=== PATIENT | female | born 1980 | race Caucasian/White ===

== ENCOUNTER → 2017-02-17 | Outpatient (CLI) | payer OTHER ==
--- NOTE | 2017-02-17 12:43 | XR ---
EXAMINATION TYPE: XR hand complete bilateral DATE OF EXAM: 02/17/2017 12:39 PM COMPARISON: NONE HISTORY: Pain TECHNIQUE: Three views are submitted. FINDINGS: The osseous structures are intact. The joint spaces are preserved and there is no acute fracture or dislocation. IMPRESSION: 1. No definite acute fracture or dislocation if symptoms persist, follow-up study in 7 to 10 days wo uld be suggested
== END ==
LOC: RADXRMAIN 12:20
PROVIDERS: ATTEND Psychiatry & Neurology Pain Medicine
DX: M79.641 Pain in right hand (principal); M79.642 Pain in left hand

== ENCOUNTER → 2017-02-17 | Outpatient (CLI) | payer OTHER ==
[2017-02-17 12:45] LABS: CH 30.5; CHCM 32.7; HCT 38.9 % (34.0-46.0); HDW 2.07; HGB 12.5 gm/dL (11.4-16.0); MCH 30.1 pg (25.0-35.0); MCHC 32.2 g/dL (31.0-37.0); MCV 93.6 fL (80.0-100.0); Mean Platelet Volume 8.8; RBC 4.15 m/uL (3.80-5.40); RDW 13.1 % (11.5-15.5)
[2017-02-17 12:50] LABS: Appearance,Urine Cloudy (Clear); Bilirubin,Urine Negative (Negative); Glucose,Urine (UA) Negative (Negative); Ketones,Urine Negative (Negative); Leukocyte Esterase,Urine Moderate (Negative); Mucus,Urine Rare /hpf; Nitrite,Urine Positive (Negative); Particle Count 11476; Protein,Urine Trace (Negative); RBC,Urine 2 /hpf (0-5); Specific Gravity,Urine 1.022 (1.001-1.035); Squamous Epithelial Cell,Urine 28 /hpf (0-4); UA Billing (MACRO vs. MICRO) MICRO; Urobilinogen,Urine <2.0 mg/dL (<2.0); WBC,Urine 18 /hpf (0-5)
[2017-02-17 13:10] LABS: ALT 24 U/L (9-52); AST 17 U/L (14-36); Alkaline Phosphatase 70 U/L (38-126); Anion Gap 8 mmol/L; Blood Urea Nitrogen 18 mg/dL (7-17); C Reactive Protein 5.6 mg/L (<10.0); Calcium 8.9 mg/dL (8.4-10.2); Carbon Dioxide 26 mmol/L (22-30); Chloride 106 mmol/L (98-107); Creatine Kinase 83 U/L (30-135); Glucose 78 mg/dL (74-99); Magnesium 1.9 mg/dL (1.6-2.3); Non-African American GFR(MDRD) >60 (>60 ml/min/1.73 sqM); Potassium 3.8 mmol/L (3.5-5.1); Sodium 140 mmol/L (137-145); Total Bilirubin 0.3 mg/dL (0.2-1.3); Total Protein 6.7 g/dL (6.3-8.2)
[2017-02-17 13:58] LABS: Vitamin B12 392 pg/mL (239-931)
[2017-02-17 15:20] LABS: Erythrocyte Sedimentation Rate 8 mm/hr (0-20)
[2017-02-17 18:16] LABS: Hemoglobin A1C 5.2 % (4.2-6.1)
[2017-02-18 05:52] LABS: Cyclic Citrullinated Pep IgG 7 UNITS (<20)
[2017-02-18 15:26] LABS: Vitamin E (Alpha Tocopherol) 836 ug/dL (500-1800)
[2017-02-22 13:39] LABS: Vitamin K 534 pg/mL (80-1160)
[2017-02-26 21:03] LABS: Nicotinamide 14 ng/mL; Nicotinic Acid None Detected; Nicotinuric Acid None Detected
== END | disposition home or self-care (01) ==
LOC: LABWHC1 12:06
PROVIDERS: ATTEND Psychiatry & Neurology Pain Medicine
DX: M25.50 Pain in unspecified joint (principal); G89.29 Other chronic pain; Z79.899 Other long term (current) drug therapy
CPT/HCPCS: 36415; 80053; 81001; 82306; 82550; 82607; 83036; 83519; 83735; 84207; 84425; 84446; 84590; 84591; 84597; 85027; 85652; 86140; 86200; 86235

== ENCOUNTER → 2017-03-10 | Outpatient (CLI) | payer OTHER | END | disposition home or self-care (01) | LOC: LABWHC1 10:16 | PROVIDERS: ATTEND Nurse Practitioner | DX: F51.5 Nightmare disorder (principal) | CPT/HCPCS: 36415; 80183 ==

== ENCOUNTER → 2017-05-06 | Outpatient (CLI) | payer OTHER ==
--- NOTE | 2017-05-06 08:54 | MR ---
EXAMINATION TYPE: MR cervical spine wo con DATE OF EXAM ORDERED: 05/06/2017 8:38 AM HISTORY: M54.2 cervicalgia. TECHNOLOGIST HISTORY AT TIME OF EXAM: cervicalgia COMPARISON: None. TECHNIQUE: Multiplanar, multiecho imaging of the cervical spine was obtained without contrast on a 1 .5 pablo magnet. FINDINGS: Prevertebral soft tissues are normal. Vertebral body height and alignment are maintained. Atlantoaxial relationships are normal. There is a normal craniocervical junction. Cord signal is normal. At C2-C3, no abnormality is seen. At C3-C4, there is mild, bilateral intervertebral foraminal narrowing due to minimal uncovertebral jorge luis int disease. At C4-C5, no abnormality is seen. At C5-C6, there is mild disc space loss. There is a diffuse disc displacement deforming the thecal sa c without cord contact. The facets are unremarkable. There is mild degenerative change within the unc overtebral joints. At C6-C7, no abnormality is seen. At C7-T1, no abnormality is seen. IMPRESSION: 1. MILD, BILATERAL INTERVERTEBRAL FORAMINAL NARROWING, C3-4. 2. DIFFUSE DISC DISPLACEMENT, C5-6 DEFORMING THE THECAL SAC WITHOUT CORD CONTACT.
== END | disposition home or self-care (01) ==
LOC: RADMRIMAIN 07:32
PROVIDERS: ATTEND Psychiatry & Neurology Pain Medicine
DX: M99.71 Connective tissue and disc stenosis of intervertebral foramina of cervical region (principal); M50.222 Other cervical disc displacement at C5-C6 level
CPT/HCPCS: 72141

== ENCOUNTER 2017-05-29 22:11 | Emergency (ER) | payer SELFPAY ==
[2017-05-29] MEDS ORDERED: SODIUM CHLORIDE 0.9% 500 ML IV STA (22:46)
[2017-05-29] MEDS ORDERED: ASPIRIN 81 MG CHEW PO STA (22:46)
--- NOTE | 2017-05-29 22:55 | ED ---
General Adult HPI - General Chief complaint: Chest Pain Stated complaint: chest pain Time Seen by Provider: 05/29/17 22:24 Source: patient, RN notes reviewed Mode of arrival: wheelchair Limitations: no limitations - History of Present Illness Initial comments: 36-year-old female presents to the emergency department with a chief complaint of centralized chest pain patient states she's had a few last few weeks worsening the last few days. Patient states this pain was just SPREAD OUT ACROSS HER CHEST. PATIENT STATES STABBING TYPE PAIN. WORSE TO COUGH OR TOUCH. PATIENT STATES SHE DOES HAVE SOME SHORTNESS OF BREATH WITH THIS. PATIENT STATES SHE HAS HAD MILD COUGH FOR ABOUT A MONTH OR SO. PATIENT DENIES ANY FEVER CHILLS WITH THIS. PATIENT DENIES ANY PRESSURE TAKE PAIN. PATIENT STATES IS ALWAYS THERE. WE'LL GET WORSE. PATIENT STATES SHE IS NOT CURRENTLY HAVING ANY OTHER SYMPTOMS. PATIENT HAS A SIGNIFICANT HEART HISTORY. Patient denies any recent fever, chills, back pain, abdominal pain, nausea vomiting, numbness or tingling, dysuria or hematuria, constipation or diarrhea, headaches or visual changes, or any other current symptoms. - Related Data Home Medications Medication Instructions Recorded Confirmed QUEtiapine [SEROquel] 50 mg PO HS 09/02/16 05/29/17 Allergies Allergy/AdvReac Type Severity Reaction Status Date / Time No Known Allergies Allergy Verified 05/29/17 22:21 Review of Systems ROS Statement: Those systems with pertinent positive or pertinent negative responses have been documented in the HPI. ROS Other: All systems not noted in ROS Statement are negative. Past Medical History Past Medical History: No Reported History Additional Past Medical History / Comment(s): STATES SCIATICA BACK PAIN, MENORRHAGIA History of Any Multi-Drug Resistant Organisms: None Reported Past Surgical History: Section, Tubal Ligation Additional Past Surgical History / Comment(s): X3 Past Anesthesia/Blood Transfusion Reactions: No Reported Reaction Past Psychological History: Anxiety, Depression Smoking Status: Current every day smoker Past Alcohol Use History: None Reported Past Drug Use History: Marijuana - Past Family History Mother Family Medical History: No Reported History General Exam - General Exam Comments Initial Comments: General: The patient is awake and alert, in no distress, and does not appear acutely ill. Eye: Pupils are equal, round and reactive to light, extra-ocular movements are intact; there is normal conjunctiva bilaterally. No signs of icterus. Ears, nose, mouth and throat: There are moist mucous membranes and no oral lesions. Neck: The neck is supple, there is no tenderness. Cardiovascular: There is a regular rate and rhythm. No murmur, rub or gallop is appreciated. Tenderness to the anterior chest wall to palpation. Respiratory: Lungs are clear to auscultation, respirations are non-labored, breath sounds are equal. No wheezes, stridor, rales, or rhonchi. Gastrointestinal: Soft, non-distended, non-tender abdomen without masses or organomegaly noted. There is no rebound or guarding present. No CVA tenderness. Bowel sounds are unremarkable. Back: There is no tenderness to palpation in the midline. There is no obvious deformity. No rashes noted. Musculoskeletal: Normal ROM, no tenderness, There is no pedal edema. There is no calf tenderness or swelling. Sensation intact. Pulses equal bilaterally 2+. Neurological: CN II-XII intact, There are no obvious motor or sensory deficits. Coordination appears grossly intact. Speech is normal. Skin: Skin is warm and dry and no rashes or lesions are noted. Psychiatric: Cooperative, appropriate mood & affect, normal judgment. Limitations: no limitations Course Vital Signs 05/29/17 05/29/17 22:19 22:35 Temperature 98.2 F 97.7 F Pulse Rate 76 55 L Respiratory 20 12 Rate Blood Pressure 121/76 109/60 O2 Sat by Pulse 97 99 Oximetry EKG Findings - EKG Comments: EKG Findings:: Sinus bradycardia with sinus arrhythmia 58 bpm, normal axis, no atopy, no S-T depressions or elevations, Medical Decision Making - Medical Decision Making 36-year-old female presents emergency department with a chief complaint of a costochondral type chest pain patient states she's had it for about one week or sooner last 2 weeks.. At this time patient's laboratory is reviewed and negative. This time patient's pain is reproducible to palpation. This time we did discuss costochondritis. We discussed care for this. We discussed follow- up return parameters. Patient stated that she understood all questions have answered. She'll be discharged home. - Lab Data Result diagrams: 05/29/17 22:42 05/29/17 22:42 Lab Results 05/29/17 05/29/17 05/29/17 Range/Units 22:42 22:42 22:42 WBC 9.8 (3.8-10.6) k/uL RBC 3.76 L (3.80-5.40) m/uL Hgb 11.8 (11.4-16.0) gm/dL Hct 35.2 (34.0-46.0) % MCV 93.6 (80.0-100.0) fL MCH 31.4 (25.0-35.0) pg MCHC 33.5 (31.0-37.0) g/dL RDW 13.8 (11.5-15.5) % Plt Count 233 (150-450) k/uL Neutrophils % 63 % Lymphocytes % 25 % Monocytes % 5 % Eosinophils % 4 % Basophils % 1 % Neutrophils # 6.1 (1.3-7.7) k/uL Lymphocytes # 2.5 (1.0-4.8) k/uL Monocytes # 0.5 (0-1.0) k/uL Eosinophils # 0.4 (0-0.7) k/uL Basophils # 0.1 (0-0.2) k/uL PT (9.0-12.0) sec INR (<1.2) APTT (22.0-30.0) sec D-Dimer (<0.60) mg/L FEU Sodium 140 (137-145) mmol/L Potassium 3.6 (3.5-5.1) mmol/L Chloride 106 (98-107) mmol/L Carbon Dioxide 24 (22-30) mmol/L Anion Gap 10 mmol/L BUN 7 (7-17) mg/dL Creatinine 0.50 L (0.52-1.04) mg/dL Est GFR (MDRD) Af Amer >60 (>60 ml/min/1.73 sqM) Est GFR (MDRD) Non-Af >60 (>60 ml/min/1.73 sqM) Glucose 83 (74-99) mg/dL Calcium 8.6 (8.4-10.2) mg/dL Magnesium 1.8 (1.6-2.3) mg/dL Total Bilirubin 0.1 L (0.2-1.3) mg/dL AST 14 (14-36) U/L ALT 25 (9-52) U/L Alkaline Phosphatase 84 (38-126) U/L Total Creatine Kinase 60 (30-135) U/L CK-MB (CK-2) 0.5 (0.0-2.4) ng/mL CK-MB (CK-2) Rel Index 0.8 Troponin I <0.012 (0.000-0.034) ng/mL Total Protein 5.6 L (6.3-8.2) g/dL Albumin 3.3 L (3.5-5.0) g/dL 05/29/17 Range/Units 22:42 WBC (3.8-10.6) k/uL RBC (3.80-5.40) m/uL Hgb (11.4-16.0) gm/dL Hct (34.0-46.0) % MCV (80.0-100.0) fL MCH (25.0-35.0) pg MCHC (31.0-37.0) g/dL RDW (11.5-15.5) % Plt Count (150-450) k/uL Neutrophils % % Lymphocytes % % Monocytes % % Eosinophils % % Basophils % % Neutrophils # (1.3-7.7) k/uL Lymphocytes # (1.0-4.8) k/uL Monocytes # (0-1.0) k/uL Eosinophils # (0-0.7) k/uL Basophils # (0-0.2) k/uL PT 9.7 (9.0-12.0) sec INR 0.9 (<1.2) APTT 24.8 (22.0-30.0) sec D-Dimer 0.35 (<0.60) mg/L FEU Sodium (137-145) mmol/L Potassium (3.5-5.1) mmol/L Chloride (98-107) mmol/L Carbon Dioxide (22-30) mmol/L Anion Gap mmol/L BUN (7-17) mg/dL Creatinine (0.52-1.04) mg/dL Est GFR (MDRD) Af Amer (>60 ml/min/1.73 sqM) Est GFR (MDRD) Non-Af (>60 ml/min/1.73 sqM) Glucose (74-99) mg/dL Calcium (8.4-10.2) mg/dL Magnesium (1.6-2.3) mg/dL Total Bilirubin (0.2-1.3) mg/dL AST (14-36) U/L ALT (9-52) U/L Alkaline Phosphatase (38-126) U/L Total Creatine Kinase (30-135) U/L CK-MB (CK-2) (0.0-2.4) ng/mL CK-MB (CK-2) Rel Index Troponin I (0.000-0.034) ng/mL Total Protein (6.3-8.2) g/dL Albumin (3.5-5.0) g/dL Disposition Clinical Impression: Costochondral chest pain Disposition: HOME SELF-CARE Condition: Stable Instructions: Costochondritis (ED) Additional Instructions: Please use medication as discussed. Please follow up with family doctor if symptoms have not improved over the next two days. Please return to the emergency room if your symptoms increase or worsen or for any other concerns. Referrals: Gio Razo MD [Primary Care Provider] - 1-2 days Time of Disposition: 23:49
[2017-05-29 22:58] LABS: Basophils # (A) 0.1 k/uL (0-0.2); Basophils % (A) 1 %; CHCM 34.3; Eosinophils # (A) 0.4 k/uL (0-0.7); Eosinophils % (A) 4 %; HCT 35.2 % (34.0-46.0); HDW 2.19; HGB 11.8 gm/dL (11.4-16.0); Luc # (Auto) 0.21; Luc % (Auto) 2; Lymphocytes # (A) 2.5 k/uL (1.0-4.8); Lymphocytes % (A) 25 %; MCH 31.4 pg (25.0-35.0); MCHC 33.5 g/dL (31.0-37.0); MCV 93.6 fL (80.0-100.0); Mean Platelet Volume 9.4; Monocytes # (A) 0.5 k/uL (0-1.0); Monocytes % (A) 5 %; Neutrophils # (A) 6.1 k/uL (1.3-7.7); Neutrophils % (A) 63 %; RBC 3.76 m/uL (3.80-5.40); RDW 13.8 % (11.5-15.5); WBC 9.8 k/uL (3.8-10.6); WBC (Perox) 9.83
[2017-05-29 23:08] LABS: ALT 25 U/L (9-52); AST 14 U/L (14-36); Alkaline Phosphatase 84 U/L (38-126); Anion Gap 10 mmol/L; Blood Urea Nitrogen 7 mg/dL (7-17); Calcium 8.6 mg/dL (8.4-10.2); Carbon Dioxide 24 mmol/L (22-30); Chloride 106 mmol/L (98-107); Glucose 83 mg/dL (74-99); Magnesium 1.8 mg/dL (1.6-2.3); Non-African American GFR(MDRD) >60 (>60 ml/min/1.73 sqM); Potassium 3.6 mmol/L (3.5-5.1); Sodium 140 mmol/L (137-145); Total Bilirubin 0.1 mg/dL (0.2-1.3); Total Protein 5.6 g/dL (6.3-8.2)
[2017-05-29 23:11] LABS: INR 0.9 (<1.2); Partial Thromboplastin Time 24.8 sec (22.0-30.0); Prothrombin Time 9.7 sec (9.0-12.0)
[2017-05-29 23:25] LABS: Creatine Kinase 60 U/L (30-135)
--- NOTE | 2017-05-29 23:31 | XR ---
EXAM: XR Chest, 2 Views CLINICAL HISTORY: Reason: Chest Pain TECHNIQUE: Frontal and lateral views of the chest. COMPARISON: No relevant prior studies available. FINDINGS: Lungs: Unremarkable. No consolidation. Pleural space: Unremarkable. No pneumothorax. Heart: Unremarkable. No cardiomegaly. Mediastinum: Unremarkable. Bones/joints: Unremarkable. IMPRESSION: Normal chest x-rays.
[2017-05-29 23:37] LABS: Creatine Kinase MB 0.5 ng/mL (0.0-2.4)
[2017-05-29 23:38] LABS: Troponin I <0.012 ng/mL (0.000-0.034)
[2017-05-29] MEDS ORDERED: KETOROLAC 30 MG/ML 1 ML VIAL IVP STA (23:43)
[2017-05-30 00:19] VITALS: BP 130/82; PULSE 52; RESP 14; TEMP 98.3
== END 2017-05-30 00:23 | disposition home or self-care (01) ==
LOC: EC 22:11
DX: R07.89 Other chest pain (principal); F32.9 Major depressive disorder, single episode, unspecified; F41.9 Anxiety disorder, unspecified; F17.200 Nicotine dependence, unspecified, uncomplicated; Z79.899 Other long term (current) drug therapy
CPT/HCPCS: 99285; 96374; 36415; 93005; 85379; 80053; 82550; 82553; 83735; 84484; 85025; 85610; 85730; 71020; 96361; J1885

== ENCOUNTER → 2017-09-07 | Outpatient (CLI) | payer OTHER ==
[2017-09-07 19:41] LABS: Appearance,CSF Clear
[2017-09-09 12:03] LABS: Immunoglobulin G 894 mg/dL (700 - 1600)
[2017-09-12 10:37] LABS: Lyme Specimen Source csf
== END | disposition home or self-care (01) ==
LOC: LABWHC1 10:02
PROVIDERS: ATTEND Psychiatry & Neurology Pain Medicine
DX: R90.82 White matter disease, unspecified (principal); R42 Dizziness and giddiness; H53.9 Unspecified visual disturbance
CPT/HCPCS: 36415; 82040; 82042; 82306; 82784; 83873; 83916; 84157; 87476; 88108; 89050

== ENCOUNTER 2018-02-24 12:57 | Emergency (ER) | payer OTHER ==
[2018-02-24 13:16] VITALS: PULSE 100
--- NOTE | 2018-02-24 14:22 | ED ---
General Adult HPI - General Chief complaint: Abdominal Pain Stated complaint: GROIN AND PELVIC PAIN Time Seen by Provider: 02/24/18 14:05 Source: patient, RN notes reviewed, old records reviewed Mode of arrival: ambulatory Limitations: no limitations - History of Present Illness Initial comments: 37-year-old female presenting with 3 days of lower abdominal pain. Patient's pain initially was suprapubic and periumbilical. She has developed primarily right lower quadrant pain. She initially thought this may be related to constipation. But she did have a normal bowel movement today. No blood. No diarrhea. Patient does not menstruate status post ablation. Denies vaginal bleeding. Denies vaginal discharge. Denies dysuria or hematuria. Patient has had some nausea and no vomiting. Denies fever or chills. Denies upper abdominal pain. Denies flank pain. - Related Data Home Medications Medication Instructions Recorded Confirmed Baclofen [Lioresal] 10 mg PO TID PRN 02/24/18 02/24/18 Cetirizine HCl [Zyrtec] 10 mg PO DAILY 02/24/18 02/24/18 OXcarbazepine [Trileptal] 300 mg PO BID 02/24/18 02/24/18 Pregabalin [Lyrica] 150 mg PO BID 02/24/18 02/24/18 Vortioxetine Hydrobromide 20 mg PO DAILY 02/24/18 02/24/18 [Trintellix] tiZANidine [Zanaflex] 4 mg PO TID PRN 02/24/18 02/24/18 Previous Rx's Medication Instructions Recorded Doxycycline Monohydrate [Monodox] 100 mg PO Q12HR #28 cap 02/24/18 Allergies Allergy/AdvReac Type Severity Reaction Status Date / Time No Known Allergies Allergy Verified 02/24/18 14:10 Review of Systems ROS Statement: Those systems with pertinent positive or pertinent negative responses have been documented in the HPI. ROS Other: All systems not noted in ROS Statement are negative. Past Medical History Past Medical History: No Reported History Additional Past Medical History / Comment(s): STATES SCIATICA BACK PAIN, MENORRHAGIA History of Any Multi-Drug Resistant Organisms: None Reported Past Surgical History: Section, Tubal Ligation, Uterine Ablation Additional Past Surgical History / Comment(s): X3 Past Anesthesia/Blood Transfusion Reactions: No Reported Reaction Past Psychological History: Anxiety, Depression Smoking Status: Current every day smoker Past Alcohol Use History: None Reported Past Drug Use History: Marijuana - Past Family History Mother Family Medical History: No Reported History General Exam Limitations: no limitations General appearance: alert, in no apparent distress Head exam: Present: atraumatic, normocephalic Eye exam: Present: normal appearance, PERRL ENT exam: Present: normal exam. Absent: normal oropharynx, mucous membranes dry Neck exam: Present: normal inspection. Absent: tenderness, meningismus Respiratory exam: Present: normal lung sounds bilaterally. Absent: respiratory distress Cardiovascular Exam: Present: regular rate, normal rhythm GI/Abdominal exam: Present: soft, tenderness (Suprapubic and right lower quadrant). Absent: distended, guarding, rebound Extremities exam: Present: normal inspection, normal capillary refill, other (2 + DP pulses bilaterally). Absent: pedal edema Back exam: Present: normal inspection. Absent: CVA tenderness (R), CVA tenderness (L) Neurological exam: Present: alert, oriented X3, CN II-XII intact. Absent: motor sensory deficit Psychiatric exam: Present: normal affect, normal mood Skin exam: Present: warm, dry, intact. Absent: cyanosis, diaphoretic Course Vital Signs 02/24/18 02/24/18 13:14 17:04 Temperature 97.0 F L 98.4 F Pulse Rate 100 100 Respiratory 20 18 Rate Blood Pressure 126/83 130/84 O2 Sat by Pulse 100 100 Oximetry Medical Decision Making - Medical Decision Making 37-year-old presenting for evaluation of right lower quadrant pain. Pain is been present for 3 days. Initial history and exam is concerning for right lower quadrant pathology including appendicitis. CT is obtained, this is negative for appendicitis, there is fat stranding adjacent to the right adnexa and concern for ovarian pathology including torsion. Ultrasound is recommended and obtained. This does show decreased arterial flow to the right adnexa with no cystic lesion or mass. Preserved venous waveform. These findings are discussed with Dr. Haynes, on-call LIVE TRUCK OPERATOR. She believes given the lack of ovarian mass or cyst that torsion is very unlikely. She feels outpatient follow -up is appropriate. Given the patient's clinical picture I do agree that outpatient follow-up is appropriate at this time. Patient is given 1 g Rocephin in the emergency department for UTI. Urine culture is obtained. She will also be started on doxycycline for the possibility of adnexal infection. She will be presented to emergency department with worsening symptoms. She will follow up with LIVE TRUCK OPERATOR on Wednesday which is in 3 days. - Lab Data Result diagrams: 02/24/18 14:15 02/24/18 14:15 Lab Results 02/24/18 02/24/18 02/24/18 Range/Units 14:15 14:15 14:15 WBC 11.9 H (3.8-10.6) k/uL RBC 4.49 (3.80-5.40) m/uL Hgb 13.4 (11.4-16.0) gm/dL Hct 39.7 (34.0-46.0) % MCV 88.4 (80.0-100.0) fL MCH 29.9 (25.0-35.0) pg MCHC 33.8 (31.0-37.0) g/dL RDW 13.3 (11.5-15.5) % Plt Count 308 (150-450) k/uL Neutrophils % 84 % Lymphocytes % 9 % Monocytes % 4 % Eosinophils % 3 % Basophils % 0 % Neutrophils # 10.0 H (1.3-7.7) k/uL Lymphocytes # 1.1 (1.0-4.8) k/uL Monocytes # 0.4 (0-1.0) k/uL Eosinophils # 0.3 (0-0.7) k/uL Basophils # 0.0 (0-0.2) k/uL Sodium 138 (137-145) mmol/L Potassium 4.0 (3.5-5.1) mmol/L Chloride 100 (98-107) mmol/L Carbon Dioxide 24 (22-30) mmol/L Anion Gap 14 mmol/L BUN 16 (7-17) mg/dL Creatinine 0.56 (0.52-1.04) mg/dL Est GFR (CKD-EPI)AfAm >90 (>60 ml/min/1.73 sqM) Est GFR (CKD-EPI)NonAf >90 (>60 ml/min/1.73 sqM) Glucose 84 (74-99) mg/dL Calcium 9.5 (8.4-10.2) mg/dL Total Bilirubin 0.7 (0.2-1.3) mg/dL AST 29 (14-36) U/L ALT 40 (9-52) U/L Alkaline Phosphatase 117 (38-126) U/L Total Protein 7.7 (6.3-8.2) g/dL Albumin 4.7 (3.5-5.0) g/dL Amylase 47 (30-110) U/L Lipase 92 (23-300) U/L Urine Color Yellow Urine Appearance Cloudy H (Clear) Urine pH 7.0 (5.0-8.0) Ur Specific [place] 1.022 (1.001-1.035) Urine Protein 1+ H (Negative) Urine Glucose (UA) Negative (Negative) Urine Ketones Negative (Negative) Urine Blood Trace H (Negative) Urine Nitrite Positive H (Negative) Urine Bilirubin Negative (Negative) Urine Urobilinogen <2.0 (<2.0) mg/dL Ur Leukocyte Esterase Moderate H (Negative) Urine RBC 2 (0-5) /hpf Urine WBC 25 H (0-5) /hpf Ur Squamous Epith Cells 1 (0-4) /hpf Amorphous Sediment Rare H (None) /hpf Urine Bacteria Occasional H (None) /hpf Urine Mucus Occasional H (None) /hpf Urine HCG, Qual (Not Detectd) 02/24/18 Range/Units 14:15 WBC (3.8-10.6) k/uL RBC (3.80-5.40) m/uL Hgb (11.4-16.0) gm/dL Hct (34.0-46.0) % MCV (80.0-100.0) fL MCH (25.0-35.0) pg MCHC (31.0-37.0) g/dL RDW (11.5-15.5) % Plt Count (150-450) k/uL Neutrophils % % Lymphocytes % % Monocytes % % Eosinophils % % Basophils % % Neutrophils # (1.3-7.7) k/uL Lymphocytes # (1.0-4.8) k/uL Monocytes # (0-1.0) k/uL Eosinophils # (0-0.7) k/uL Basophils # (0-0.2) k/uL Sodium (137-145) mmol/L Potassium (3.5-5.1) mmol/L Chloride (98-107) mmol/L Carbon Dioxide (22-30) mmol/L Anion Gap mmol/L BUN (7-17) mg/dL Creatinine (0.52-1.04) mg/dL Est GFR (CKD-EPI)AfAm (>60 ml/min/1.73 sqM) Est GFR (CKD-EPI)NonAf (>60 ml/min/1.73 sqM) Glucose (74-99) mg/dL Calcium (8.4-10.2) mg/dL Total Bilirubin (0.2-1.3) mg/dL AST (14-36) U/L ALT (9-52) U/L Alkaline Phosphatase (38-126) U/L Total Protein (6.3-8.2) g/dL Albumin (3.5-5.0) g/dL Amylase (30-110) U/L Lipase (23-300) U/L Urine Color Urine Appearance (Clear) Urine pH (5.0-8.0) Ur Specific [place] (1.001-1.035) Urine Protein (Negative) Urine Glucose (UA) (Negative) Urine Ketones (Negative) Urine Blood (Negative) Urine Nitrite (Negative) Urine Bilirubin (Negative) Urine Urobilinogen (<2.0) mg/dL Ur Leukocyte Esterase (Negative) Urine RBC (0-5) /hpf Urine WBC (0-5) /hpf Ur Squamous Epith Cells (0-4) /hpf Amorphous Sediment (None) /hpf Urine Bacteria (None) /hpf Urine Mucus (None) /hpf Urine HCG, Qual Not Detected (Not Detectd) Disposition Clinical Impression: UTI (urinary tract infection) Disposition: HOME SELF-CARE Condition: Good Instructions: Urinary Tract Infection in Women (ED) Prescriptions: Doxycycline Monohydrate [Monodox] 100 mg PO Q12HR #28 cap Is patient prescribed a controlled substance at d/c from ED?: No Referrals: Gio Razo MD [Primary Care Provider] - 1-2 days Alva Haynes MD [STAFF PHYSICIAN] - 1-2 days Time of Disposition: 17:20
[2018-02-24 14:26] LABS: Basophils % (A) 0 %; Eosinophils # (A) 0.3 k/uL (0-0.7); Eosinophils % (A) 3 %; HCT 39.7 % (34.0-46.0); HGB 13.4 gm/dL (11.4-16.0); Lymphocytes # (A) 1.1 k/uL (1.0-4.8); Lymphocytes % (A) 9 %; MCH 29.9 pg (25.0-35.0); MCHC 33.8 g/dL (31.0-37.0); MCV 88.4 fL (80.0-100.0); Mean Platelet Volume 7.8; Monocytes # (A) 0.4 k/uL (0-1.0); Monocytes % (A) 4 %; Neutrophils % (A) 84 %; Platelet Count 308 k/uL (150-450); RBC 4.49 m/uL (3.80-5.40); RDW 13.3 % (11.5-15.5); WBC 11.9 k/uL (3.8-10.6)
[2018-02-24 14:30] LABS: Amorphous Sediment,Urine Rare /hpf; Appearance,Urine Cloudy (Clear); Bacteria,Urine Occasional /hpf; Bilirubin,Urine Negative (Negative); Blood,Urine Trace (Negative); Color,Urine Yellow; Glucose,Urine (UA) Negative (Negative); Ketones,Urine Negative (Negative); Leukocyte Esterase,Urine Moderate (Negative); Mucus,Urine Occasional /hpf; Nitrite,Urine Positive (Negative); Protein,Urine 1+ (Negative); RBC,Urine 2 /hpf (0-5); Specific Gravity,Urine 1.022 (1.001-1.035); Squamous Epithelial Cell,Urine 1 /hpf (0-4); Urobilinogen,Urine <2.0 mg/dL (<2.0); WBC,Urine 25 /hpf (0-5)
[2018-02-24 14:40] LABS: ALT 40 U/L (9-52); AST 29 U/L (14-36); Albumin 4.7 g/dL (3.5-5.0); Alkaline Phosphatase 117 U/L (38-126); Amylase 47 U/L (30-110); Anion Gap 14 mmol/L; Blood Urea Nitrogen 16 mg/dL (7-17); Calcium 9.5 mg/dL (8.4-10.2); Carbon Dioxide 24 mmol/L (22-30); Chloride 100 mmol/L (98-107); Glucose 84 mg/dL (74-99); Lipase 92 U/L (23-300); Sodium 138 mmol/L (137-145); Total Bilirubin 0.7 mg/dL (0.2-1.3); Total Protein 7.7 g/dL (6.3-8.2)
[2018-02-24] MEDS ORDERED: MORPHINE SULFATE 4 MG/ML SYRINGE IVP STA (14:59)
[2018-02-24] MEDS ORDERED: RX INFO: IV CONTRAST WAS GIVEN 1 EACH MISC MISCELLANE PRN (14:59)
[2018-02-24] MEDS ORDERED: cefTRIAXone IN SWFI 1,000 MG/10 ML SYRINGE IVP STA (15:29)
--- NOTE | 2018-02-24 15:46 | CT ---
EXAMINATION TYPE: CT abdomen pelvis w con DATE OF EXAM: 02/24/2018 HISTORY: Patient complains of severe right groin pain. CT DLP: 403.1mGycm Automated Exposure Control for Dose Reduction was Utilized. CONTRAST: CT scan of the abdomen and pelvis is performed with IV Contrast, patient injected with 100 mL of Isov ue 300. COMPARISON: None. FINDINGS: LUNG BASES: No significant abnormality is appreciated. LIVER/GB: Wedge-shaped area of hypoattenuation is seen within segment IVb of the liver near the fissu re for the falciform ligament most commonly related to focal fatty infiltration. Remainder the liver parenchyma is grossly unremarkable. No gallbladder calculi are noted. PANCREAS: No significant abnormality is seen. SPLEEN: No significant abnormality is seen. Small splenule seen adjacent to the nonenlarged [place]. ADRENALS: No significant abnormality is seen. KIDNEYS: The kidneys enhance and excrete symmetrically without hydronephrosis or evidence of obstruct mila uropathy. BOWEL: The appendix is within normal limits and air-filled without periappendiceal fat stranding.. UTERUS/ADNEXA: Adjacent to the right lateral uterus there are some mild inflammatory fat stranding ch anges on series 3 image 62 also adjacent to the fallopian tube. Left adnexal cystic lesion measures 3 .2 cm. Complex right adnexal lesion is seen. This measures 2.5 cm with adjacent fluid attenuated 1.6 cm lesion both on series 3 image 65. LYMPH NODES: No greater than 1cm abdominal or pelvic lymph nodes are appreciated. OSSEOUS STRUCTURES: No significant abnormality is seen. OTHER: Small calcified nodule of undetermined clinical significance is seen within the umbilicus.. IMPRESSION: 1. No CT evidence of appendicitis, bowel obstruction or cholelithiasis. However right lower quadrant fat stranding is seen next to the right lateral uterus and fallopian tube. Posterior the uterus there is a complex structure that could represent a hypoattenuated ovary, ovarian lesion, or pedunculated fibroid. Pelvic ultrasound with Doppler is recommended to exclude ovarian torsion given the right low er quadrant pain.
--- NOTE | 2018-02-24 16:54 | US ---
EXAMINATION TYPE: US transvaginal DATE OF EXAM: 02/24/2018 COMPARISON: 01/03/2016 CLINICAL HISTORY: Pain. TECHNIQUE: Transvaginal (TV). Date of LMP: unknown; patient had ablation in 2014 EXAM MEASUREMENTS: Uterus: 8.9 x 5.7 x 5.7 cm Endometrial Stripe: 0.4 cm Right Ovary: 2.2 x 1.6 x 3.7 cm Left Ovary: not visualized 1. Uterus: Anteverted Bulky uterus with parenchymal changes suggestive of possible leiomyomas 2. Endometrium: wnl 3. Right Ovary: 1.5 x 1.3 x 1.9 cm follicle. Echogenicity of the right ovary is overall decreased. S pectral, color, and waveform Doppler imaging demonstrates a dampened arterial waveform of the right o vary and maintained venous waveform. 4. Left Ovary: not visualized; obscured by gas Spectral, color and waveform doppler imaging . 5. Bilateral Adnexa: wnl 6. Posterior cul-de-sac: wnl IMPRESSION: 1. There is slight decreased echogenicity of the right ovary and dampened arterial waveform. In the s etting of right lower quadrant pain findings remain concerning but not definitive of ovarian torsion. STREET ROLLER ENGINEER consultation is recommended. 2. Focally and heterogenous uterus, probable fibroid uterus, with no measurable leiomyoma identified.
[2018-02-24 17:05] VITALS: BP 130/84; RESP 18; TEMP 98.4
== END 2018-02-24 17:28 | disposition home or self-care (01) ==
LOC: EC 12:57
DX: N39.0 Urinary tract infection, site not specified (principal); F32.9 Major depressive disorder, single episode, unspecified; F17.200 Nicotine dependence, unspecified, uncomplicated; Z98.51 Tubal ligation status; Z79.899 Other long term (current) drug therapy
CPT/HCPCS: 36415; 80053; 82150; 83690; 85025; 81001; 81025; 87086; 93976; 76830; 74177; 99284; 96374; 96375; J2270; J0696; Q9967

== ENCOUNTER → 2019-03-09 | Outpatient (CLI) | payer OTHER ==
[2019-03-09 12:06] VITALS: BP 103/73; PULSE 83; RESP 16
--- NOTE | 2019-03-09 15:06 | P.PAINCN ---
History of Present Illness - Reason for Consult Consult date: 03/09/19 - History of Present Illness This is the initial consultation visit for this 38 years old female with a chronic history of severe low back pain with radiation to the left lower extremity, started in 2014 she denies any initiating event, the pain is constant and increases with intensity with any kind of activity, intensity of the pain fluctuates between 6/10 increased to 9/10 with any activity, patient doesn't physical therapy in the past without any long-term benefit and she has interventional pain management done 2 years ago with good result, patient denies any fever or night sweats. She denies any motor or sensory deficit , and she had no change in the bowel movement or urination Past Medical History Past Medical History: No Reported History Additional Past Medical History / Comment(s): STATES SCIATICA BACK PAIN, MENORRHAGIA History of Any Multi-Drug Resistant Organisms: None Reported Past Surgical History: Section, Tubal Ligation, Uterine Ablation Additional Past Surgical History / Comment(s): X3 Past Anesthesia/Blood Transfusion Reactions: No Reported Reaction Past Psychological History: Anxiety, Depression Smoking Status: Current every day smoker Past Alcohol Use History: None Reported Additional Past Alcohol Use History / Comment(s): SMOKES 1/2 PPD OR LESS. SMOKING FOR OVER 20 YEARS. Past Drug Use History: Marijuana Additional Drug Use History / Comment(s): marijuana monthly - Past Family History Mother Family Medical History: No Reported History Medications and Allergies Home Medications Medication Instructions Recorded Confirmed Type Baclofen [Lioresal] 10 mg PO TID PRN 02/24/18 03/09/19 History Cetirizine HCl [Zyrtec] 10 mg PO DAILY 02/24/18 03/09/19 History OXcarbazepine [Trileptal] 300 mg PO BID 02/24/18 03/09/19 History Pregabalin [Lyrica] 50 mg PO BID 03/09/19 03/09/19 History Vortioxetine Hydrobromide 20 mg PO DAILY 03/09/19 03/09/19 History [Trintellix] Allergies Allergy/AdvReac Type Severity Reaction Status Date / Time No Known Allergies Allergy Verified 03/09/19 11:52 Physical Exam Vitals: Vital Signs Pulse Resp BP Pulse Ox 03/09/19 11:57 83 16 103/73 98 Intake and Output 03/09/19 03/09/19 03/09/19 06:59 14:59 22:59 Other: Weight 71.214 kg Social history : smoker , NO ETOH , NO Illegal drugs use . Review of Systems : - Constitutional : no chills , no fever , no night sweats , - Ears : no ear discharge , no change in hearing -Nose, Mouth ,Throat ; no bleeding gums, no sore throat , no epistaxis , -Cardiovascular : Denies chest pain, , no orthopnea , no palpitation -Respiratory : Denies cough , no dyspnea , no hemoptysis -Gastrointestinal : no change in bowel habits , no coffee-ground emesis . -Genitourinary : No hematuria , no discharge , no incontinence, -Musculoskeletal : No gait dysfunction , report low back pain , - Neurological : no ataxia , no tremor , no sezure , -Psychatric : no suicidal ideation no hallucination - Endocrine : no cold intolerence , no polyuria , no polydypsia , -Hematologic : no easy bleeding , no easy brusing , -Allergic / immm : no angioedema , no wheezing ,no allergic rhinitis -Integumentary : no brttle nails , no change hair / nails , no foot/leg ulcers . Physical Examinations : -Constitutional : Cooperative , not in acute distress . -HEENT : nech ; supple , no Lymphadenopathy , no Thyromegaly , :eyes : no icterus, no photophobia . ENT : normal oropharynx , no Thrush - Respiratory : Chest clear to auscultations Bilaterally , no wheezing . - Cardiovascular : regular rate and rhythem , S1 , S2 , no S3 , no S4. - Gastrointestina l: abdomen soft no tenderness , no organomegally . - Genitourinary : Defferred . -Integumentary : No cellulitis , no ulcers , normal skin turgor , no cyanotic . - neurologic : Cranial nerve II to XII intact , no focal neurological deffecit -psychatric : alert , oriented X 3 , appropriate affect , intact judgment and insight . -Lymphatic : no Lymphadenopathy. - musculoskeltal: normal gait Cervical Spine motor stregnth in the deltoid and biceps, normal right side , normal Left side motor stregnth biceps and the wrist extensors normal right side ,normal left side . motor stregnth in the triceps muscle . normal Right side , normal Left side deep tendon reflexes normal at the biceps , normal at Brachioradialis , normal at triceps. Lumber spine moter stegnth lower extremities ,thigh and legs 5/5 Right side , 5/5 Left side deep tendon reflexes : normal Knee Jerk , normal ankle Jerk positive lumber facet Loading Test Range of motion of the lumbar spine Flexion 30 degrees, extension 10 degrees strait leg raising test , positive at 30 degree on the left side and is negative on the right side Fabere test Negative RT and positive LT . Results Comments: MRI of the lumbar spine done [facility] in 2016 showed L5-S1 central disc protrusion Assessment and Plan Plan: Assessment and plan= lumbar radiculopathy Patient could benefit from Lyrica 50 mg twice a day, and it can be increased in the future as tolerated Patient signed the narcotic agreement, and side effects of Lyrica discussed with the patient, Patient could benefit from left-sided L5-S1 transforaminal epidural steroid injection Treatment plan discussed with the patient and she agreed with proceeding Time with Patient: Greater than 30 PQRS Measure Charge Sheet Measure #130: Documentation of Current Meds in Medical Chart: Patient's medications documented in chart Measure #226: Tobacco Use: Screen & Cessation Intervention: Pt screened for tobacco use AND intervention given Measure #111: Pneumonia Vaccination: Pneumococcal vaccine NOT administered or previously given Measure #47: Advance Care Plan: Advance care planning discussed & documented, pt chose/unable to give Measure #412: Opioid Treatment Agreement: Documented signed opioid trtmnt agreemnt min once during opioid trtmnt Measure #408: Opioid Therapy Follow-up Evaluation: Patient had f/u eval minimum every 3 months during opioid therapy Measure #317: Preventitive Care & Scrn High Bld Press & F/U: Normal blood pressure, f/u not required Measure #128: Body Mass Index (BMI) Screening & Follow-up: BMI documented ABOVE normal parameters - f/u documented Measure #131: Pain Assessment & Follow-up: Pain positive & plan documented, Follow-up scheduled Measure #431: Unhealthy Alcohol Use Preventative Care & Scrn: Patient not identified as an unhealthy alcohol user PQRS Narrative: Smoking Status Current every day smoker Do You Want the Pneumonia No Vaccine AT THIS TIME? Blood Pressure 103/73 Pain Intensity [Bilateral 6 Lower Back] Scale Used Numeric (1 - 10) Hx Alcohol Use (MH) No Home Medications: Ambulatory Orders Baclofen [Lioresal] 10 mg PO TID PRN 02/24/18 Cetirizine HCl [Zyrtec] 10 mg PO DAILY 02/24/18 OXcarbazepine [Trileptal] 300 mg PO BID 02/24/18 Pregabalin [Lyrica] 50 mg PO BID 03/09/19 Vortioxetine Hydrobromide [Trintellix] 20 mg PO DAILY 03/09/19
== END ==
LOC: PNWHC3 11:32
PROVIDERS: ATTEND Specialist
DX: M54.16 Radiculopathy, lumbar region (principal); F17.200 Nicotine dependence, unspecified, uncomplicated; Z79.899 Other long term (current) drug therapy; Z79.891 Long term (current) use of opiate analgesic; Z71.6 Tobacco abuse counseling
CPT/HCPCS: 99211